=== PATIENT | female | born 1980 | race Caucasian/White ===

== ENCOUNTER 2021-01-04 18:22 | Emergency (ER) | payer OTHER, SELFPAY ==
--- NOTE | ~2021-01-04 | XR_ITS ---
EXAMINATION: XR ribs LT 2V INDICATION: Left chest pain TECHNIQUE: 3 views of the left ribs were obtained. COMPARISON: None. FINDINGS: There appears to be a healed fracture of the left eighth rib. No definite displaced fractur e is identified. The visualized portions of the thorax are unremarkable. The heart size is normal. IMPRESSION: 1. Healed left eighth rib fracture without evidence of displaced rib fracture. Reviewed, dictated and finalized at location A.
[2021-01-04 19:23] VITALS: BP 138/107; PULSE 90; RESP 20; TEMP 36.6; O2SAT 96
--- NOTE | 2021-01-04 20:44 | ED.GENADULT ---
HPI - General Adult General Chief complaint: Unspecified Stated complaint: rib pain Time Seen by Provider: 01/04/21 20:35 Source: RN notes reviewed History of Present Illness HPI narrative: Patient presents to emergency department from home for left-sided rib pain. Patient states approximately 04/05/1928 today she coughed when she felt a pop in her left left side with pain that goes underneath her breast and to her left back she has pain is worse with movement. She states she did take a hydrocodone at home and takes hydrocodone 7.5 mg tabs 3 times a day for chronic back pain she states that the pain is worse with movement she states that she felt like she had had a similar episode when she believes she had broken a rib approximately a month ago she denies any fevers or chills shortness of breath or any other symptoms Related Data Allergies Allergy/AdvReac Type Severity Reaction Status Date / Time zolpidem [From Ambien] AdvReac Hallucinati Verified 01/04/21 19:28 ng Review of Systems Review of Systems: Narrative: Gen.: Denies fevers or chills ENT: Denies congestion Respiratory: Denies shortness of breath or cough CV: Denies chest pain or palpitations GI: Denies abdominal pain nausea, emesis or diarrhea denies burning, urgency, frequency or hematuria Musculoskeletal: reports chest wall pain Neuro: Denies numbness, tingling, weakness or focal weakness Skin: Denies rash Except as documented, all other systems reviewed and negative [facility] Past Medical History Medical History Chronic pain Surgical History Surgical History (Updated 08/14/19 @ 13:39 by Miguel Xiao PA-C) History of orthopedic surgery Social History Social History Smoking status: Current every day smoker Gender identity (if verbalized by the patient): Male Exam Narrative: Exam Narrative: APPEARANCE: No acute distress, nontoxic, resting in bed EYES: EOMI HEENT: Normocephalic, atraumatic, OMM RESPIRATORY: No respiratory distress Clear to auscultation bilaterally with no rhonchi wheezing or rales. CARDIOVASCULAR: Regular rate and rhythm without murmurs rubs or gallops. Chest: Tender palpation of the left lateral chest wall in region of ribs 6 through 8 with similar tenderness in posterior chest and anterior chest pain increased with deep inspiration and movement of the torso ABDOMINAL: Soft, nontender, nondistended, no rebound or guarding MUSCULOSKELETAl: Moves all extremities. No clubbing, cyanosis or edema. NEURO: Awake and alert. Following commands, speech normal, no focal deficits SKIN:: Warm, dry. No rashes lesions or abrasions PSYCHIATRIC: Normal affect/mood, Course Course Emergency Course: Discussed with patient pain control states she is unable to take any NSAIDs secondary to GI issues patient is on hydrocodone 7.5 mg 3 times a day she states she does not have enough to increase this time discussed taking 1 of those approximately every 4-6 hours for the next several days for pain control I will write with the patient a short amount of additional [place] but I did discuss that she is to follow with her PCP Discussed with patient results of workup and diagnosis. Discussed need for follow-up with primary care, proper use of medication, and reasons to return to the emergency department. Patient understands and agrees to current treatment plan Vital Signs Vital signs: Vital Signs Temperature 97.9 F 01/04/21 19:23 Pulse Rate 90 01/04/21 19:23 Respiratory Rate 20 01/04/21 19:23 Blood Pressure 138/107 H 01/04/21 19:23 Pulse Oximetry 96 01/04/21 19:23 Temperature 97.9 F 01/04/21 19:23 Pulse Rate 90 01/04/21 19:23 Respiratory Rate 20 01/04/21 19:23 Blood Pressure 138/107 H 01/04/21 19:23 Pulse Oximetry 96 01/04/21 19:23 Medical Decision Making Vital Signs Vital Signs: Vital Signs Temperature 97.9
[2021-01-04] MEDS: KETOROLAC (*BKC) 60 MG/2 ML VIAL IM (21:33)
== END 2021-01-04 21:34 | disposition home or self-care (01) ==
LOC: ANHED 20:57
PROVIDERS: Emergency Provider Emergency Medicine
DX: R07.89 Other chest pain (principal); G89.29 Other chronic pain
CPT/HCPCS: 71100; 96372; 99283; J1885

== ENCOUNTER 2022-12-15 09:37 | Outpatient (CLI) | payer OTHER, SELFPAY ==
--- NOTE | 2022-12-16 07:30 | P.PCNPFT_ITS ---
PFT Procedure Performed PFT Procedure Performed Spirometry with Pre/Post Bronchodilator Plethysmography (Lung Vol) Diffusing Cap (DLCO) Flow Vol Loop PFT Interpretation This is a pulmonary function test with pre and post-bronchodilator spirometry, plethysmography and diffusing capacity. The test was performed and results interpreted in accordance with the 2019 and 2005 ATS/ERS Task Force guidelines respectively using the Global Lung Function Initiative-2012 reference equations. Patient demonstrated good effort and cooperation. Reproducibility criteria were met. The quality of the pre bronchodilator spirometry maneuver was Grade A and post bronchodilator spirometry maneuver was Grade A. Findings: Spirometry: There is decreased maximal expiratory airflow at all lung volumes. The contour the inspiratory flow tracing is normal. The pre bronchodilator FVC is 3.24 L, 85% predicted. The pre bronchodilator FEV1 is 2.25 L, 72% predicted. The pre bronchodilator FEV1: FVC ratio is 69%. The post bronchodilator FVC is 3.38 L, representing a 4% increase. The post bronchodilator FEV1 is 2.35 L, r epresenting a 5% increase. The post bronchodilator FEV1: FVC ratio 70%. Plethysmography: The total lung capacity is 4.96 L, 96% predicted. The functional residual capacity is 2.31 L, 80% predicted. The residual volume is 1.66 L, 101% predicted. Diffusion capacity: The diffusing capacity unadjusted for hemoglobin and carboxyhemoglobin is 25.5, 105% predicted. The diffusing capacity adjusted for alveolar volume is 5.69, 121% predicted. Impression: There is a mild obstructive abnormality without significant improvement after inhaling a single dose of albuterol. The lung volumes are normal. The diffusing capacity is normal. There are no prior studies for comparison
== END 2022-12-15 09:38 | disposition home or self-care (01) ==
LOC: ANHPFT 09:38
PROVIDERS: PCP Internal Medicine Gastroenterology; Visit Provider Internal Medicine Gastroenterology
DX: J45.40 Moderate persistent asthma, uncomplicated (principal); R94.2 Abnormal results of pulmonary function studies
CPT/HCPCS: 94060; 94726; 94729

== ENCOUNTER 2023-04-06 08:53 | Outpatient (CLI) | payer OTHER, SELFPAY ==
[2023-04-14 21:03] LABS: Calprotectin, Stool 72 mcg/g
== END 2023-04-06 08:54 | disposition home or self-care (01) ==
LOC: ANHLAB 04-20 14:18
PROVIDERS: PCP Internal Medicine Gastroenterology; Visit Provider Nurse Practitioner Family
DX: R19.4 Change in bowel habit (principal); R10.9 Unspecified abdominal pain
CPT/HCPCS: 83993

== ENCOUNTER 2023-04-06 12:13 | Outpatient (CLI) | payer OTHER, SELFPAY ==
--- NOTE | ~2023-04-06 | XR_ITS ---
EXAMINATION: XR abdomen/kub 1V DATE: 04/06/2023 12:33 INDICATION: Low abdominal pain. Change in bowel habits. TECHNIQUE: A supine view of the abdomen on 2 radiographs was obtained. COMPARISON: CT abdomen and pelvis 01/26/2015 FINDINGS: There are no dilated loops of bowel. There is a small volume of stool in the colon. There a re gallstones in the gallbladder. There are small phleboliths in the pelvis. IMPRESSION: 1. Normal bowel gas pattern. 2. Cholelithiasis. Reviewed, dictated and finalized at location E.
[2023-04-06 12:59] LABS: Hematocrit 39.3 % (37.0-47.0); Hemoglobin 12.5 g/dL (12.0-15.0); Mean Corpuscular HGB Conc 31.8 g/dl (32-36); Mean Corpuscular Hemoglobin 29.8 pg (26-34); Mean Corpuscular Volume 93.8 fl (80-100); Mean Platelet Volume 9.4 fl (7.4-10.4); Platelet Count Result 415 k/mm3 (150-375); Red Blood Count 4.19 M/mm3 (4.2-5.4); Red Cell Distribution Width 13.5 % (11.5-14.5); White Blood Count 6.6 K/mm3 (4.5-10.0)
[2023-04-06 13:12] LABS: Alanine Aminotransferase 33 U/L (6-35); Albumin Level 4.7 g/dL (3.5-5.1); Alkaline Phosphatase 72 U/L (38-126); Anion Gap 11 mmol/L (8-16); Aspartate Amino Transferase 28 U/L (14-36); Bilirubin,Total 0.5 mg/dL (0.2-1.3); Blood Urea Nitrogen 13 mg/dL (7-17); CRP 1.7 mg/dL (<1.0); Calcium 9.6 mg/dL (8.4-10.2); Carbon Dioxide 23 mmol/L (22-30); Chloride 108 mmol/L (98-107); Estimated Glomerular Filt Rate > 60; Glucose 84 mg/dL (65-110); Potassium 4.2 mmol/L (3.4-5.0); Sodium 142 mmol/L (137-145)
[2023-04-06 13:44] LABS: Erythrocyte Sedimentation Rate 18 mm/hr (0-20)
== END 2023-04-06 12:14 | disposition home or self-care (01) ==
PROVIDERS: PCP Internal Medicine Gastroenterology; Visit Provider Nurse Practitioner Family
DX: R10.9 Unspecified abdominal pain (principal); R19.4 Change in bowel habit; K80.20 Calculus of gallbladder without cholecystitis without obstruction
CPT/HCPCS: 36415; 74018; 80053; 84443; 85027; 85652; 86140

== ENCOUNTER 2023-04-15 09:29 | Outpatient (CLI) | payer OTHER, SELFPAY ==
--- NOTE | ~2023-04-15 | CT_ITS ---
EXAMINATION: CT abdomen pelvis w con DATE: 04/15/2023 10:03 INDICATION: Lower abdominal pain, intermittent. Nausea, vomiting, constipation, diarrhea. TECHNIQUE: Computed tomography (CT) of the abdomen and pelvis was performed with 100 CC Omnipaque 350 intravenous contrast. Automated exposure control and iterative reconstruction technique were employe d. Exam dose: 1491.82 mGy-cm total exam DLP. COMPARISON: 01/26/2015 CT abdomen pelvis FINDINGS: Mild atelectasis at the lung bases. Heart size is within normal range. No pericardial or pleural effusion. There is hepatic steatosis. No hepatic space-occupying mass lesion is evident. There are numerous sto khoa in the gallbladder. No gallbladder wall thickening or pericholecystic fluid or fat stranding. No bile duct or pancreatic duct dilatation. No pancreatic mass lesion or calcification. Normal splenic s ize. Stable small right adrenal adenoma since 01/26/2015. The adrenal glands are otherwise unremarkable. No renal space-occupying mass lesion or urinary tract calculus or hydroureteronephrosis. The urinary bladder is relatively evacuated. Status post hysterectomy. Normal caliber of the abdominal aorta. No intraperitoneal or retroperitoneal or pelvic mass lesion or adenopathy or ascites. Normal appendix. No bowel obstruction, bowel wall thickening, pneumatosis or intraperitoneal free air. Severe degenerative disc disease at L3-4. Moderately severe degenerative disc disease at L4-5. No suspicious osteolytic or osteoblastic lesions are noted. IMPRESSION: Cholelithiasis; no evidence of acute cholecystitis is detected Normal appendix Status post hysterectomy Prominent degenerative disc disease at L3-4 and L4-5 Reviewed, dictated and finalized at Location A. Reviewed, dictated and finalized at location L.
== END 2023-04-15 09:30 | disposition home or self-care (01) ==
LOC: ANHIMG 09:30
PROVIDERS: PCP Internal Medicine Gastroenterology; Visit Provider Nurse Practitioner Family
DX: R10.9 Unspecified abdominal pain (principal); R19.4 Change in bowel habit; M51.36 Other intervertebral disc degeneration, lumbar region; K80.20 Calculus of gallbladder without cholecystitis without obstruction
CPT/HCPCS: 74177; Q9967

== ENCOUNTER 2023-04-26 14:41 | Emergency (ER) | payer OTHER, SELFPAY ==
[2023-04-26 15:36] VITALS: BP 124/74; PULSE 60; RESP 16; TEMP 36.4; O2SAT 96
--- NOTE | 2023-04-26 16:41 | PC.NURSE ---
PT STATES SHE IS TIRED OF WAITING AND WILL BE LEAVING THE ED. ADVISED TO FOLLOW UP WITH HER GI SPECIALIST.
== END 2023-04-26 16:41 | disposition left against medical advice (07) ==
LOC: ANHED 16:54
PROVIDERS: PCP Internal Medicine Gastroenterology
DX: K85.10 Biliary acute pancreatitis without necrosis or infection (principal)
CPT/HCPCS: 99199

== ENCOUNTER 2023-05-10 10:35 | Outpatient (CLI) | payer OTHER, SELFPAY ==
--- NOTE | 2023-05-10 10:41 | ECG_ITS ---
Measurements Intervals Bode Rate: 58 P: 12 FL: 177 QRS: 31 QRSD: 84 T: 36 QT: 392 QTc: 387 Interpretive Statements SINUS BRADYCARDIA LOW QRS VOLTAGE IN PRECORDIAL LEADS [QRS DEFLECTION < 1.0 mV IN CHEST LEADS] OTHERWISE NORMAL ECG NO PREVIOUS ECG AVAILABLE FOR COMPARISON Electronically Signed On 05-10-2023 17:01:18 CDT by Maxx Little M.D.
[2023-05-10 12:04] LABS: Alanine Aminotransferase 56 U/L (6-35); Albumin Level 4.4 g/dL (3.5-5.1); Alkaline Phosphatase 83 U/L (38-126); Amylase 52 U/L (30-110); Aspartate Amino Transferase 47 U/L (14-36); Bilirubin,Total 0.3 mg/dL (0.2-1.3); Lipase 35 U/L (23-300)
== END 2023-05-10 10:36 | disposition home or self-care (01) ==
LOC: ANHSURGERY 10:40
PROVIDERS: PCP Internal Medicine Gastroenterology; Visit Provider Surgery
DX: K81.1 Chronic cholecystitis (principal); I10 Essential (primary) hypertension; Z01.818 Encounter for other preprocedural examination
CPT/HCPCS: 36415; 80076; 82150; 83690; 86850; 86900; 86901; 93005

== ENCOUNTER 2023-05-13 01:15 | Day surgery (SDC) | payer OTHER, SELFPAY ==
[2023-05-07 10:48] VITALS: BMI 48.3
--- NOTE | 2023-05-07 11:07 | PC.NURSE ---
PRE-OP INSTRUCTIONS, PLEASE READ CAREFULLY Report to the Outpatient Waiting Room, entrance under the green pavilion located off [facility], at time _0900_ on date _05/13/23_. Planned Procedure Time: _1100_. Time changes happen often and if your time is changed the preop area will call you the afternoon before. - You and your visitor will be asked to self-screen and do not enter if you have any COVID symptoms. - A mask is optional within the hospital at this time. Patients may have clear liquids (water, carbonated beverages, clear teas, apple juice) until 3 hours prior to surgery (0800 AM) with a maximum of 20 ounces. - No food from midnight until time of surgery Take the following medications with a SIP of water the morning of surgery: _METOPROLOL, PREGABALIN, & TIZANIDINE, PAIN PILL IF NEEDED _ DO NOT STOP ANY OF YOUR OTHER PRESCRIPTION MEDICATIONS PRIOR TO SURGERY ?EXCEPT THE FOLLOWING Medications to discontinue - _ZAKIQUIS PER DR. SMITH'S INSTRUCTIONS - CALL HIS OFFICE FOR INSTRUCTIONS_ Please no make-up, nail croatian, hairspray, perfume, deodorant, or body powder the day of surgery. No jewelry (including any body piercings) or valuables the day of surgery, leave them at home. Please take a shower or bath the night before, or the morning of, surgery with an antibacterial soap. Wear comfortable, loose fitting clothing. - Jewelry must be removed prior to entering the operating room. Rings and piercings that are not removed may be cut off. - The hospital will not accept responsibility for valuables. - Please leave all valuables, including medications, at home the day of surgery. If you are going home after surgery, a licensed crew truck driver must drive you home. - NO public transportation without another adult if you receive anesthesia. - We recommend that an adult stay with you for 24 hours following discharge. - We also recommend that you do not drive, make important decision, drink alcoholic beverages, or take any drugs that were not prescribed by your health care provider for at least 24 hours after your discharge time. Follow any additional instructions given to you from your surgeon. HIBICLENS SHOWER AM OF SURGERY If you or anyone in your household have experienced Covid symptoms in the past week, please notify your surgeon or the nurse liaison at the phone number below for possible testing. Telephone instructions given to _PATIENT_and asked if any additional questions and then verbalized understanding. Patient advised to call surgeon office or pre surgery nurse liaison [phone] if any additional questions.
[2023-05-13] VITALS (9 sets, daily range): BP systolic 120–159; BP diastolic 52–97; PULSE 53–98; RESP 10–16; TEMP 36.3–36.6; O2SAT 94–100
--- NOTE | 2023-05-13 07:22 | WPDHPUPDATE1 ---
History and Physical Update Update Date/Time: 05/13/23 07:22 History and Physical has been reviewed, including an updated exam of the patient. There are NO changes in the patient's condition. Risks, benefits, and alternatives have been discussed and questions answered. Patient agrees to proceed with procedure.
[2023-05-13] MEDS: KETOROLAC 15 MG/ML VIAL (*BKC) IV PUSH (07:30)
[2023-05-13] MEDS: SCOPOLAMINE 1.5 MG PATCH TRANSDERM (07:30)
[2023-05-13] MEDS: LACTATED RINGERS 1,000 ML 30 ML IV CONT ×2 (07:30→10:42)
[2023-05-13] MEDS: ACETAMINOPHEN 500 MG TABLET 1000 MG PO (07:30)
--- NOTE | 2023-05-13 07:59 | WPDANESEPPF ---
Anes - Initial Pre Proc Eval Procedure: Operation Date: 05/13/23 09:00 Proposed Procedures p Laparoscopic Cholecystectomy - Eboni Persaud MD Date/Time: 05/13/23 07:59 Surgeon: Eboni Persaud MD Pre Op Diagnosis: chronic cholecystitis with stones Patient Data Age: 42 Gender: F Height: 1.65 m Weight: 131.81 kg Allergies Allergy/AdvReac Type Severity Reaction Status Date / Time zolpidem [From Ambien] AdvReac Hallucinati Verified 05/10/23 08:51 ng Home Medications Medication Instructions Recorded Confirmed Type hydrocodone 7.5 mg-acetaminophen 1 tablet PO Q6H PRN pain #10 tabs 01/04/21 05/06/23 Rx 325 mg tablet albuterol sulfate 90 mcg/actuation 2 puff inhalation Q4H PRN 04/06/23 05/06/23 History aerosol inhaler azelastine 137 mcg (0.1 %) nasal 137 mcg intranasal Q12H 04/06/23 05/06/23 History spray aerosol bupropion HCl 300 mg 24 hr tablet, 300 mg PO QAM 04/06/23 05/06/23 History extended release fluticasone propionate 50 2 spray intranasal DAILY 04/06/23 05/06/23 History mcg/actuation nasal spray,suspension omeprazole 40 mg capsule,delayed 40 mg PO DAILY 04/06/23 05/06/23 History release pregabalin 150 mg capsule 150 mg PO BID 04/06/23 05/06/23 History apixaban 5 mg tablet (Eliquis) 5 mg PO BID 05/07/23 05/07/23 History hydrocodone 7.5 mg-acetaminophen 1 tablet TID PRN Pain 05/07/23 05/07/23 History 325 mg tablet metoprolol tartrate 50 mg tablet 50 mg BID 05/07/23 05/07/23 History omeprazole 40 mg capsule,delayed 40 mg DAILY 05/07/23 05/07/23 History release pregabalin 150 mg capsule 150 mg BID 05/07/23 05/07/23 History tizanidine 4 mg tablet 4 mg Q6H PRN Muscle Spasm 05/07/23 05/07/23 History Patient hx anesthesia problems: post op nausea/vomiting Family hx anesthesia problems: none Results Review: All pre-operative results and documents have been reviewed as part of the pre-operative evaluation. PMFSH Past Medical History Medical History Abdominal pain Afib Change in bowel habits Cholelithiasis Chronic pain Right upper quadrant pain Surgical History Surgical History History of hysterectomy History of orthopedic surgery Family History Family History Mother Malignant neoplastic disease Other Diabetes mellitus Heart disease Social History Social History (System 05/10/23 @ 08:51 by Jory Lambert) Smoking packs per day: 1.5 Smoking cigarettes per day: 30.0 Years smoked: 25 Smoking pack-years: 37.50 Smoking status: Former smoker Tobacco type: cigarettes Second hand tobacco smoke exposure: Yes Smoking end date: 12/26/22 Alcohol intake: current Alcohol use details: 2 BEERS/MONTH Substance use: current Substance use type: marijuana Other substance usage details: SMALL BOWL COUPLE TIMES DAILY Last use: 05/07/23 Living arrangements: with family Occupation/Education: occupation Additional occupation/education comments: [employer] Gender identity (if verbalized by the patient): Male Spiritual care concerns: No Anes - Eval Final PreProcedure Day of Procedure 05/13/23 07:59 Patient weight: morbidly obese Heart: bradycardia Lungs: clear to auscultation Airway: Mallampati scale class III Neurological: alert and oriented Last oral intake: >/= 8 hours ASA classification: III Emergent: no Anesthetic plan: proceed Anesthesia type and monitoring: general ETT and standard monitoring Results Review: All pre-operative results and documents have been reviewed as part of the pre-operative evaluation. Informed Consent: The patient's anesthetic plan and its attendant risks and benefits were discussed with the patient/family/POA. Questions were solicited and answers provided to the satisfaction of the patient/family/POA.
[2023-05-13] MEDS: ceFAZolin 3 GM/D5W 100 ML 100 ML IVPB (09:00)
--- NOTE | 2023-05-13 09:55 | P.OP_ITS ---
Procedure Note - Detailed Date of Procedure 05/13/23 Pre-op Diagnosis chronic cholecystitis with stones Post-op Diagnosis Same Procedure Performed Laparoscopic cholecystectomy Surgeon Eboni Persaud MD Anesthesia General Indications 42-year-old female presented to the office complaining of postprandial right up per quadrant abdominal pain associated with nausea and vomiting. Workup including imaging significant for cholecystitis, cholelithiasis. Findings Cholecystitis with cholelithiasis Description of Procedure The patient was taken to the operating room placed in the supine position. After adequate induction of general anesthesia, the patient was prepped and draped in normal sterile fashion. A time-out was then performed to verify the patient's identity as well as the procedure being performed. I then made a 5 mm incision in the infraumbilical region. Through this, a Veress needle was placed into the peritoneal cavity and CO2 gas was then insufflated. After adequate pneumoperitoneum was achieved, the Veress needle was removed and a 5 mm optiview trocar was placed through this incision under direct visualization. I then placed the laparoscope through this trocar site and under direct visualization placed a further 12 mm subxiphoid port as well as 2 additional 5 mm ports in the right upper abdomen. The gallbladder was then identified and was noted to be moderately inflamed, distended, and full of gallstones. I was able to place a grasper at the dome of the gallbladder and this was retracted anterior and cephalad up over the liver. A 2nd retractor was then placed at the infundibulum and retracted laterally, this allowed visualization of the triangle of Calot. I then was able to visualize the cystic duct in its entirety from its proximal insertion into the gallbladder, to its distal junction with the common hepatic/common bile duct junction. At this point, I carefully skeletonized the proximal cystic duct with the [place] dissector. I then clipped and transected the proximal cystic duct. Next I visualized the cystic artery. Again the artery was skeletonized, clipped, and transected. I then used the Bovie cautery to take down the peritoneal attachments of the gallbladder off the liver bed. Once the gallbladder specimen was completely detached, an endo-pouch was placed through the 12 mm port site. I then placed the gallbladder specimen into the Endo pouch and removed the endo-pouch from the 12 mm port site. The specimen will now be sent to pathology for further review. I then copiously irrigated the right upper quadrant. Some mild oozing was noted in the liver bed and this was controlled with the bovie cautery. Hemostasis was noted in the liver bed, the clips were noted to be in good position on both the cystic duct stump and the cystic artery stump. No other pathology was noted in the right upper quadrant. I then moved the laparoscope to the subxiphoid port. No iatrogenic injury or other pathology was noted in the lower abdomen. I then closed the 12 mm trocar site under direct visualization using the Win cone and 0 Vicryl suture. At this point, the abdomen was desufflated and all ports removed. All port sites were then closed with 4.O Monocryl subcuticular sutures. Dermabond was placed on each incision. The patient tolerated the procedure well, was extubated in the operating room postoperative and will be transferred to the recovery room in stable condition Estimated Blood Loss 5 Drains No Packing No Pathology Yes Complications No immediate complications Condition Stable Disposition PACU [facility] Billing Surgery - Charge Forward: Surgery Billing
[2023-05-13] MEDS: fentaNYL CITRATE INJ (*CRX) 100 MCG/2 ML VIAL 25 MCG IV PUSH ×6 (10:22→10:59)
[2023-05-13] MEDS: ONDANSETRON INJ 4 MG/2 ML VIAL IV PUSH (10:26)
[2023-05-13] MEDS: diazePAM INJ (*CRX) 10 MG/2 ML SYRINGE 5 MG IV PUSH (10:36)
[2023-05-13] MEDS: oxyCODONE HCL (*CRX) 5 MG TAB IR PO (11:15)
== END 2023-05-13 12:17 | disposition home or self-care (01) ==
PROVIDERS: PCP Internal Medicine Gastroenterology; Visit Provider Surgery
PROC: 0FT44ZZ Resection of Gallbladder, Percutaneous Endoscopic Approach (ICD-10-PCS; CPT 47562; principal; 2023-05-13 09:00)
DX: K80.10 Calculus of gallbladder with chronic cholecystitis without obstruction (principal); I48.91 Unspecified atrial fibrillation; G89.29 Other chronic pain; Z79.51 Long term (current) use of inhaled steroids; Z79.01 Long term (current) use of anticoagulants; Z79.891 Long term (current) use of opiate analgesic; Z87.891 Personal history of nicotine dependence; E66.01 Morbid (severe) obesity due to excess calories; Z68.42 Body mass index [BMI] 45.0-49.9, adult
CPT/HCPCS: 47562; 88304; A9270; J0461; J0690; J1100; J1170; J1885; J2250; J2405; J2704; J3010; J3360; J7120

== ENCOUNTER 2023-05-14 09:04 | Emergency (ER) | payer OTHER, SELFPAY ==
[2023-05-14 09:22] VITALS: BP 112/68; PULSE 100; RESP 16; TEMP 36.7; O2SAT 99
--- NOTE | 2023-05-14 09:34 | ED.GENADULT ---
HPI - General Adult General Chief complaint: Wound/Laceration Stated complaint: lab angelina on - states wound split open Time Seen by Provider: 05/14/23 09:09 Source: patient Mode of arrival: ambulatory Limitations: no limitations History of Present Illness HPI narrative: This is a 42-year-old female who presents to the ED with chief complaint of possible wound dehiscence following laparoscopic cholecystectomy occurring yesterday. Patient states today she has been sneezing a lot and noticed that her epigastric wound seemed to open. She reports a little bit of oozing blood. She came for evaluation of this possible open surgical wound. Denies any pain out of control. Denies fevers, chills, purulent drainage, nausea, vomiting. Related Data Home Medications Medication Instructions Recorded Confirmed albuterol sulfate 90 mcg/actuation 2 puff inhalation Q4H PRN SOB 04/06/23 05/13/23 aerosol inhaler azelastine 137 mcg (0.1 %) nasal 137 mcg intranasal Q12H 04/06/23 05/13/23 spray aerosol bupropion HCl 300 mg 24 hr tablet, 300 mg PO QAM 04/06/23 05/13/23 extended release fluticasone propionate 50 2 spray intranasal DAILY 04/06/23 05/13/23 mcg/actuation nasal spray,suspension omeprazole 40 mg capsule,delayed 40 mg PO DAILY 04/06/23 05/13/23 release pregabalin 150 mg capsule 150 mg PO BID 04/06/23 05/13/23 apixaban 5 mg tablet (Eliquis) 5 mg PO BID 05/07/23 05/13/23 hydrocodone 7.5 mg-acetaminophen 1 tablet TID PRN Pain 05/07/23 05/13/23 325 mg tablet metoprolol tartrate 50 mg tablet 50 mg BID 05/07/23 05/13/23 omeprazole 40 mg capsule,delayed 40 mg DAILY 05/07/23 05/13/23 release pregabalin 150 mg capsule 150 mg BID 05/07/23 05/13/23 tizanidine 4 mg tablet 4 mg Q6H PRN Muscle Spasm 05/07/23 05/13/23 Allergies Allergy/AdvReac Type Severity Reaction Status Date / Time zolpidem [From Ambien] AdvReac Hallucinati Verified 05/14/23 09:04 ng Review of Systems Review of Systems: All systems as dictated in [facility] Past Medical History Medical History Abdominal pain Afib Change in bowel habits Cholelithiasis Chronic pain Right upper quadrant pain Surgical History Surgical History History of hysterectomy History of orthopedic surgery Family History Family History Mother Malignant neoplastic disease Other Diabetes mellitus Heart disease Social History Social History (System 05/10/23 @ 08:51 by Jory Lambert) Smoking packs per day: 1.5 Smoking cigarettes per day: 30.0 Years smoked: 25 Smoking pack-years: 37.50 Smoking status: Former smoker Tobacco type: cigarettes and e-cigarettes/vaping Second hand tobacco smoke exposure: Yes Smoking end date: 12/26/22 Alcohol intake: current Alcohol use details: 2 BEERS/MONTH Substance use: current Substance use type: marijuana Other substance usage details: SMALL BOWL COUPLE TIMES DAILY Last use: 05/07/23 Living arrangements: with family Occupation/Education: occupation Additional occupation/education comments: [employer] Gender identity (if verbalized by the patient): Male Spiritual care concerns: No Exam Narrative: GENERAL: Well-appearing, well-nourished, and in no acute distress. HEAD: Normocephalic, atraumatic. EYES: PERRLA and EOMI. ENT: Nares clear, no rhinorrhea or epistaxis. Mucous membranes moist. Oropharynx without tonsillar hypertrophy exudate or other lesions. NECK: Supple. No adenopathy or masses. CHEST: No respiratory distress. Clear to auscultation. No wheezes rales or rhonchi HEART: Regular rate and rhythm. No murmur heard. Normal peripheral pulses. ABDOMEN: Diffuse mild tenderness. Soft, nondistended, normal active bowel sounds. MSK: Normal range of motion. No edema. SKIN: There are
== END 2023-05-14 10:02 | disposition home or self-care (01) ==
PROVIDERS: Emergency Provider Physician Assistant; PCP Internal Medicine Gastroenterology
DX: Z48.01 Encounter for change or removal of surgical wound dressing (principal); I48.91 Unspecified atrial fibrillation; Z90.49 Acquired absence of other specified parts of digestive tract; Z90.710 Acquired absence of both cervix and uterus; Z79.01 Long term (current) use of anticoagulants
CPT/HCPCS: 12001; 99282

== ENCOUNTER 2023-10-06 10:18 | Emergency (ER) | payer OTHER, SELFPAY ==
[2023-10-06 10:46] VITALS: BP 140/82; PULSE 82; RESP 16; TEMP 36.7; O2SAT 99
--- NOTE | 2023-10-06 12:09 | ED.EAR ---
HPI - Ear Problem General Chief complaint: Ear Stated complaint: ear infection Time Seen by Provider: 10/06/23 11:59 History of Present Illness HPI Narrative: Patient is a 43-year-old female here with bilateral ear pain. She states about 5 months ago she started having some itchiness within her bilateral ear canal. She states she has a negative imaging and caused a scab within her right ear canal about 8 days ago. She went to an urgent care at this time and was started on Augmentin about 8 days ago. About 5 days ago she had some dizziness, some sensitivity in this prompted her to go to the ED at [place] where she was continued on additional augmentin. She has attempted to get in with an ENT but is having difficulty with her insurance since the start of the New Year. She denies any hearing loss, facial droop, facial sensitivity. She does note significant sensitivity to sound. She denies fever chills. Related Data Home Medications Medication Instructions Recorded Confirmed omeprazole 40 mg capsule,delayed 40 mg PO DAILY 04/06/23 08/27/23 release apixaban 5 mg tablet (Eliquis) 5 mg PO BID 05/07/23 08/27/23 metoprolol tartrate 50 mg tablet 50 mg PO BID 05/07/23 08/27/23 pregabalin 150 mg capsule 150 mg PO BID 05/07/23 08/27/23 tizanidine 4 mg tablet 4 mg PO HS PRN Muscle Spasm 05/07/23 08/27/23 hydrocodone 7.5 mg-acetaminophen 1 tablet PO TID PRN pain 05/18/23 08/27/23 325 mg tablet valerian root 500 mg capsule 500 mg PO HS PRN Insomnia 05/18/23 08/27/23 melatonin 3 mg capsule 3 mg PO QHS 05/26/23 08/27/23 docusate sodium 100 mg capsule 100 mg PO DAILY 06/24/23 08/27/23 Allergies Allergy/AdvReac Type Severity Reaction Status Date / Time zolpidem [From Ambien] AdvReac Hallucinati Verified 08/27/23 10:14 ng Review of Systems Review of Systems: All systems reviewed & are unremarkable except as noted in HPI and below PMFSH Past Medical History Medical History Abdominal pain Afib Change in bowel habits Cholelithiasis Chronic pain Right upper quadrant pain Surgical History Surgical History History of hysterectomy History of orthopedic surgery Family History Family History Mother Malignant neoplastic disease Other Diabetes mellitus Heart disease Social History Social History Smoking packs per day: 1.5 Smoking cigarettes per day: 30.0 Years smoked: 25 Smoking pack-years: 37.50 Smoking status: Former smoker Tobacco type: cigarettes and e-cigarettes/vaping Second hand tobacco smoke exposure: Yes Smoking end date: 12/26/22 Alcohol intake: current Alcohol use details: rarely Substance use: current Substance use type: marijuana Other substance usage details: SMALL BOWL COUPLE TIMES DAILY Last use: daily Living arrangements: with family Occupation/Education: occupation Additional occupation/education comments: [employer] Gender identity (if verbalized by the patient): Male Spiritual care concerns: No Exam Narrative: GENERAL: Well-appearing, well-nourished, and in no acute distress. HEAD: Normocephalic, atraumatic. EYES: PERRLA and EOMI. ENT: Nares clear. Mucous membranes moist. BL ear canal erythematous and sensitive to instrumentation. She has healing scabbed lesion in bilateral canal and on BL TM. TM erythematous without large effusion or opacity. No lymphadenopathy. No mastoid tenderness. NECK: Supple. CHEST: Clear to auscultation. No respiratory distress. HEART: Regular rate and rhythm. Normal peripheral pulses. ABDOMEN: Soft, nontender, nondistended. EXTREMITIES: Normal range of motion. No edema. SKIN: Warm, dry, no rash. NEURO: No focal deficits. Alert and oriented x3. PSYCH: Normal mood and affect. Course Course
== END 2023-10-06 12:54 | disposition home or self-care (01) ==
PROVIDERS: Emergency Provider Student in an Organized Health Care Education/Training Program; PCP Internal Medicine Gastroenterology
DX: H92.03 Otalgia, bilateral (principal); I48.91 Unspecified atrial fibrillation; Z87.891 Personal history of nicotine dependence; Z90.710 Acquired absence of both cervix and uterus; Z79.01 Long term (current) use of anticoagulants
CPT/HCPCS: 99283

== ENCOUNTER 2024-01-19 23:21 | Emergency (ER) | payer OTHER, SELFPAY ==
[2024-01-19 23:24] VITALS: BP 133/88; PULSE 71; RESP 20; TEMP 36.9; O2SAT 100
--- NOTE | 2024-01-20 00:27 | ED.GENADULT ---
HPI - General Adult General Chief complaint: Unspecified Stated complaint: not able to sleep Time Seen by Provider: 01/20/24 00:15 History of Present Illness HPI narrative: 43-year-old female presents to emergency department for intermittent headaches and insomnia for the past 3 days. Patient states she has not been able to sleep due to ?situational things. She states she is currently homeless. She denies SI or HI, denies prior psychiatric history. She has not taken anything to help her sleep there than valerian root. She is requesting Tylenol extra-strength. She denies head injury trauma, vision changes, focal numbness or weakness, fever. Denies alcohol or drug use. Related Data Home Medications Medication Instructions Recorded Confirmed omeprazole 40 mg capsule,delayed 40 mg PO DAILY 04/06/23 08/27/23 release apixaban 5 mg tablet (Eliquis) 5 mg PO BID 05/07/23 08/27/23 metoprolol tartrate 50 mg tablet 50 mg PO BID 05/07/23 08/27/23 pregabalin 150 mg capsule 150 mg PO BID 05/07/23 08/27/23 tizanidine 4 mg tablet 4 mg PO HS PRN Muscle Spasm 05/07/23 08/27/23 hydrocodone 7.5 mg-acetaminophen 1 tablet PO TID PRN pain 05/18/23 08/27/23 325 mg tablet valerian root 500 mg capsule 500 mg PO HS PRN Insomnia 05/18/23 08/27/23 melatonin 3 mg capsule 3 mg PO QHS 05/26/23 08/27/23 docusate sodium 100 mg capsule 100 mg PO DAILY 06/24/23 08/27/23 Allergies Allergy/AdvReac Type Severity Reaction Status Date / Time zolpidem [From Ambien] AdvReac Hallucinati Verified 08/27/23 10:14 ng Review of Systems Review of Systems: CONSTITUTIONAL: Denies fever, chills, or sweats. EYES: Denies visual changes, redness, or discharge. ENT: Denies rhinorrhea, congestion, sore throat, or otalgia. CARDIOVASCULAR: Denies chest pain, palpitations, or edema. RESPIRATORY: Denies cough or dyspnea. GASTROINTESTINAL: Denies abdominal pain, nausea, vomiting, or diarrhea. GENITOURINARY: Denies dysuria or hematuria. SKIN: Denies rash or itching. MUSCULOSKELETAL: Denies back pain, joint pain, or myalgia. NEUROLOGIC: See HPI PSYCHIATRIC: See HPI PMFSH Past Medical History Medical History Abdominal pain Afib Change in bowel habits Cholelithiasis Chronic pain Right upper quadrant pain Surgical History Surgical History History of hysterectomy History of orthopedic surgery Family History Family History Mother Malignant neoplastic disease Other Diabetes mellitus Heart disease Social History Social History Smoking packs per day: 1.5 Smoking cigarettes per day: 30.0 Years smoked: 25 Smoking pack-years: 37.50 Smoking status: Former smoker Tobacco type: cigarettes and e-cigarettes/vaping Second hand tobacco smoke exposure: Yes Smoking end date: 12/26/22 Alcohol intake: current Alcohol use details: rarely Substance use: current Substance use type: marijuana Other substance usage details: SMALL BOWL COUPLE TIMES DAILY Last use: daily Living arrangements: with family Occupation/Education: occupation Additional occupation/education comments: [employer] Gender identity (if verbalized by the patient): Male Spiritual care concerns: No Exam Narrative: GENERAL: Well-appearing, well-nourished, and in no acute distress. HEAD: Normocephalic, atraumatic. EYES: PERRLA and EOMI. Bilateral cerumen impaction ENT: Nares clear, no rhinorrhea or epistaxis. Mucous membranes moist. NECK: Supple. No nuchal rigidity CHEST: Clear to auscultation. No respiratory distress. HEART: Regular rate and rhythm. No murmur heard. Normal peripheral pulses. ABDOMEN: Soft, nontender, nondistended, normal active bowel sounds. EXTREMITIES: Normal range of motion. No edema. SKIN: Warm,
== END 2024-01-20 01:13 | disposition home or self-care (01) ==
PROVIDERS: Emergency Provider Physician Assistant; PCP Internal Medicine Gastroenterology
DX: G47.00 Insomnia, unspecified (principal); R51.9 Headache, unspecified; Z59.00 Homelessness unspecified; I48.91 Unspecified atrial fibrillation; Z87.891 Personal history of nicotine dependence; Z90.710 Acquired absence of both cervix and uterus; Z79.01 Long term (current) use of anticoagulants
CPT/HCPCS: 99283